=== PATIENT | male | born 1960 | race African-American/Black ===

== ENCOUNTER 2016-11-15 03:24 | Emergency (ER) | payer OTHER ==
[2016-11-15 03:27] VITALS: BP 142/84
== END 2016-11-15 03:56 | disposition other institution (70) ==
LOC: ED 03:24
DX: Z02.89 Encounter for other administrative examinations (principal); S00.93XA Contusion of unspecified part of head, initial encounter; X58.XXXA Exposure to other specified factors, initial encounter; Y93.89 Activity, other specified; Y99.8 Other external cause status; Y92.89 Other specified places as the place of occurrence of the external cause